=== PATIENT | male | born 1950 | race Caucasian/White ===

== ENCOUNTER 2017-01-07 18:43 | Emergency (ER) | payer MEDICARE, BC ==
[2017-01-07 19:44] VITALS: BP 148/77
--- NOTE | 2017-01-07 19:55 | UC ---
Shoulder Pain HPI - HPI Summary HPI Summary: 66 year old male presents with right shoulder pain post fall. - History of Current Complaint Chief Complaint: UCUpperExtremity Stated Complaint: RIGHT SHOULDER PAIN PT FELL Time Seen by Provider: 01/07/17 19:55 Hx Obtained From: Patient Onset/Duration: Sudden Onset Timing: Constant Severity Initially: Moderate Severity Currently: Moderate Pain Scale Used: 0-10 Numeric - 8 - Allergies/Home Medications Allergies/Adverse Reactions: Allergies Allergy/AdvReac Type Severity Reaction Status Date / Time No Known Allergies Allergy Verified 01/07/17 19:36 Home Medications: Home Medications Ibuprofen TAB* [Advil TAB*] 400 mg PO Q6H PRN 01/07/17 [History Confirmed ] Insulin GLARGINE(*) [Lantus(*)] 100 units SUBCUT Q24H 01/07/17 [History Confirmed 01/07/17] oxyCODONE/Acetamin 5/325 MG* [Percocet 5/325 TAB*] 1 tab PO Q4H PRN 01/07/17 [ History Confirmed 01/07/17] PMH/Surg Hx/FS Hx/Imm Hx Previously Healthy: Yes - Surgical History Surgical History: Yes Surgery Procedure, Year, and Place: 1969 [facility], LT FOOT SURGERY x2, umbilical hernia - Social History Alcohol Use: None Substance Use Type: None Smoking Status (MU): Never Smoked Tobacco Review of Systems Constitutional: Negative Skin: Negative Eyes: Negative ENT: Negative Respiratory: Negative Cardiovascular: Negative Gastrointestinal: Negative Genitourinary: Negative Motor: Negative Neurovascular: Negative Musculoskeletal: Myalgia, Other: - right shoulder pain Neurological: Negative Psychological: Negative All Other Systems Reviewed And Are Negative: Yes Physical Exam Triage Information Reviewed: Yes Vital Signs: Initial Vital Signs Temp 36.7 C 01/07/17 19:40 Pulse 83 01/07/17 19:40 Resp 16 01/07/17 19:40 BP 148/77 01/07/17 19:40 Pulse Ox 99 01/07/17 19:40 Vital Signs Reviewed: Yes Eye Exam: Normal ENT Exam: Normal Dental Exam: Normal Neck exam: Normal Neck: Positive: 1 Respiratory Exam: Normal Cardiovascular Exam: Normal Abdominal Exam: Normal Musculoskeletal: Positive: Other: - right shoulder pain Neurological Exam: Normal Psychological Exam: Normal Skin Exam: Normal Shoulder Course/Dx - Differential Dx/Diagnosis Provider Diagnoses: right shoulder bicep tendonitis Discharge - Discharge Plan Condition: Stable Disposition: HOME Prescriptions: Acetaminop/Codeine 30 MG TAB* [Tylenol/Codeine 30 MG TAB*] 1 tab PO Q8H PRN #9 tab MDD 3 PRN Reason: Pain Meloxicam [Mobic] 7.5 mg PO BID PC #30 tab Methocarbamol TAB* [Robaxin 500 MG TAB*] 500 mg PO TID PRN #30 tab PRN Reason: Spasms Patient Education Materials: Tendinitis (ED) Referrals: Dami Fontaine MD [Medical Doctor] - Elizabeth Garcia MD [Primary Care Provider] -
--- NOTE | 2017-01-07 19:55 | RAD ---
Indication: Right shoulder pain. 4 views of the right shoulder demonstrates no fracture. No other bone or joint abnormality is noted. IMPRESSION: No fracture of the right shoulder is noted.
== END 2017-01-07 20:26 | disposition home or self-care (01) ==
LOC: UCCORT 18:43
DX: M75.21 Bicipital tendinitis, right shoulder (principal); Z79.4 Long term (current) use of insulin
CPT/HCPCS: 99212; G0463

== ENCOUNTER 2021-06-13 23:22 | Inpatient (IN) ==
[2021-06-13] MEDS ORDERED: Heparin 5000 UNITS/ML 1 mL VIAL IV SCH (23:45)
[2021-06-13 23:49] LABS: ABS Basophils 0.1 10^3/ul (0-0.2); ABS Eosinophils 0.2 10^3/ul (0-0.6); ABS Lymphocytes 1.6 10^3/ul (1.0-4.8); ABS Monocytes 0.9 10^3/ul (0-0.8); ABS Neutrophils 5.1 10^3/ul (1.5-7.7); Eosinophil % 2.5 %; Hematocrit 44 % (42-52); Hemoglobin 15.1 g/dL (14.0-18.0); Lymphocyte % 19.8 %; Mean Corpuscular HGB Conc 34 g/dL (31-36); Mean Corpuscular Hemoglobin 30 pg (27-31); Mean Corpuscular Volume 87 fL (80-94); Mean Platelet Volume 8.1 fL (7.4-10.4); Nucleated Red Blood Cells % 0.2; Platelet Count 264 10^3/uL (150-450); Red Blood Count 5.06 10^6 /uL (4.18-5.48); Red Cell Distribution Width 13 % (10-15); White Blood Count 7.9 10^3/uL (3.5-10.8)
[2021-06-14] MEDS: Heparin DRIP 25,000 UNITS BAG 25,000 UNITS/500 ML BAG IV SCH ×2 (00:11→14:57)
[2021-06-14 00:36] LABS: Albumin/Globulin Ratio 1.4 (1-3); Calcium 9.9 mg/dL (8.6-10.3); Globulin 2.8 g/dL (2-4); Potassium 4.1 mmol/L (3.5-5.0); Total Bilirubin 0.7 mg/dL (0.2-1.0); Total Protein 6.8 g/dL (6.4-8.9); eGFR CKD-EPI 67.5 (>60)
[2021-06-14] MEDS ORDERED: Ondansetron 4 mg VIAL 2 MG/ML 2 ml VIAL IV PRN (01:10)
[2021-06-14 02:15] LABS: HDL Cholesterol 39.6 mg/dL
[2021-06-14 03:35] LABS: High Sensitivity Troponin 1 Hr 2015 pg/mL (<20)
[2021-06-14] MEDS ORDERED: Dextrose 50% Syringe 50 ml 25 GM/50 ML SYRINGE IV PUSH PRN (07:22)
[2021-06-14] MEDS ORDERED: NS 0.9% 500 ml BAG 500 ML IV ONE (08:46)
[2021-06-14] MEDS ORDERED: Perflutren Lipid Microsphere 3 ML VIAL ONE (10:14)
[2021-06-14] MEDS ORDERED: Midazolam 5 mg/5 ml VIAL 1 mg/ml 5 ml VIAL (5 mg) ONE (10:44)
[2021-06-14] MEDS ORDERED: fentaNYL 100 mcg/2 ml 50 MCG/ML VIAL ONE (10:44)
[2021-06-14] MEDS ORDERED: Heparin 1,000 UNIT/ML 10 ml (10,000 UNITS) CATHLAB/DIALYSIS ONE (10:44)
[2021-06-14] MEDS ORDERED: niCARdipine 0.1MG/ML IVPREMIX 20 MG/200 ML BAG IV ONE (10:45)
[2021-06-14] MEDS ORDERED: Lidocaine 1% MPF 5 ML VIAL ONE (10:45)
[2021-06-14] MEDS ORDERED: nitroGLYCERIN DRIP 25,000 MCG/250 ML BTL ONE (10:45)
[2021-06-14] MEDS ORDERED: Heparin 2 UNITS/ML 1000 mls 2,000 ML IV ONE (10:45)
[2021-06-14] MEDS ORDERED: Iohexol 350 (CONTRAST) 200 ML MDV IV ONE ×2 (10:45→10:58)
[2021-06-14 11:27] LABS: POC SO2 93 %
[2021-06-14 12:03] LABS: POC SO2 57 %
[2021-06-14] MEDS ORDERED: Ondansetron 4 mg VIAL 2 MG/ML 2 ml VIAL ONE (13:42)
[2021-06-14 19:08] VITALS: BP 123/65
== END 2021-06-14 20:00 | disposition short-term general hospital (02) | DRG 281 ==
LOC: ED 23:22 → EDHOLD 06-14 01:10 → MEDTELE 06-14 02:25
PROVIDERS: ADMIT Internal Medicine; ATTEND Internal Medicine